=== PATIENT | female | born 1940 | race Caucasian/White ===

== ENCOUNTER 2020-05-02 14:19 | Inpatient (IN) ==
[2020-05-02] MEDS ORDERED: *HR* OxyCODONE/APAP 5/325 TABLET PO ONE (17:56)
[2020-05-02] MEDS ORDERED: *HR* LORazepam 1 MG TABLET PO ONE (17:56)
[2020-05-02] MEDS ORDERED: *HR* FentaNYL (PF) 100 MCG/2 ML VIAL IVP ONE (18:38)
[2020-05-02] MEDS ORDERED: *HR* FentaNYL (PF) 100 MCG/2 ML VIAL IM ONE (19:07)
[2020-05-02] MEDS ORDERED: *HR* HYDROmorphone (PF) 1 MG/ML SYRINGE IM ONE (19:30)
[2020-05-02] MEDS ORDERED: *HR* HYDROmorphone (PF) 1 MG/ML SYRINGE IVP ONE ×2 (19:31→19:37)
[2020-05-02 22:42] LABS: Basophils % 0.6 %; Eosinophils # 0.2 K/mcL (0.0-0.6); Eosinophils % 3.2 %; Hematocrit 40.4 % (35.3-44.9); Hemoglobin 13.8 g/dL (11.5-15.4); Immature Granulocytes % 0.3 % (0-4); Lymphocytes # 1.3 K/mcL (0.6-4.6); Lymphocytes % 18.2 %; Mean Corpuscular HGB Conc 34.2 g/dL (31.6-35.5); Mean Corpuscular Hemoglobin 32.9 pg (28.0-33.3); Mean Corpuscular Volume 96.4 fL (83.0-100.0); Mean Platelet Volume 8.5 fL (9.4-12.4); Monocytes % 13.8 %; Neutrophils # 4.7 K/mcL (1.6-8.9); Platelet Count 318 K/mcL (140-400); Red Blood Count 4.19 M/mcL (3.82-4.97); Red Cell Distribution Width 12.6 % (11.5-14.5); Segmented Neutrophils % 63.9 %; White Blood Count 7.3 K/mcL (4.3-11.1)
[2020-05-02 23:07] LABS: Alanine Aminotransferase 19 Units/L (7-52); Albumin 3.2 g/dL (3.5-5.7); Alkaline Phosphatase 68 Units/L (34-104); Aspartate Amino Transferase 14 Units/L (13-39); BUN/Creatinine Ratio 29 (6-26); Bilirubin,Total 0.4 mg/dL (0.3-1.0); Blood Urea Nitrogen 12 mg/dL (8-23); C-Reactive Protein 12 mg/L (Less than 10); Calcium 8.1 mg/dL (8.6-10.3); Carbon Dioxide 28 mEq/L (23-29); Chloride 95 mEq/L (98-107); Glucose 98 mg/dL (70-105); Osmolality,Calculated 270 (280-300); Potassium 3.3 mEq/L (3.5-5.1); Sodium 130 mEq/L (136-145); eGFR For African Americans > 60 (> 60); eGFR For Non-African Americans > 60 (> 60)
[2020-05-03] MEDS ORDERED: Naloxone 0.4 MG/ML INJ IVP PRN (00:27)
[2020-05-03] MEDS ORDERED: Acetaminophen 325 MG TABLET PO PRN (00:32)
[2020-05-03] MEDS ORDERED: *HR* Promethazine 25 MG/ML VIAL IVP PRN (00:32)
[2020-05-03] MEDS ORDERED: 0.9 % Sodium Chloride 1,000 ML IVC SCH (00:45)
[2020-05-03 00:53] LABS: Albumin/Globulin Ratio 1.1 (1.1-2.2); Globulin 2.9 g/dL (2.4-3.5); Total Protein 6.1 g/dL (6.4-8.9)
[2020-05-03] MEDS: *HR* HYDROmorphone (PF) 1 MG/ML SYRINGE IVP PRN ×5 (01:56→22:48)
[2020-05-03 06:45] LABS: Basophils % 0.4 %; Eosinophils # 0.2 K/mcL (0.0-0.6); Eosinophils % 2.4 %; Hematocrit 40.3 % (35.3-44.9); Hemoglobin 13.6 g/dL (11.5-15.4); Immature Granulocytes % 0.3 % (0-4); Lymphocytes # 1.2 K/mcL (0.6-4.6); Lymphocytes % 15.8 %; Mean Corpuscular HGB Conc 33.7 g/dL (31.6-35.5); Mean Corpuscular Hemoglobin 32.1 pg (28.0-33.3); Mean Platelet Volume 8.7 fL (9.4-12.4); Monocytes # 1.2 K/mcL (0.0-1.3); Monocytes % 15.1 %; Platelet Count 345 K/mcL (140-400); Red Blood Count 4.24 M/mcL (3.82-4.97); Red Cell Distribution Width 12.6 % (11.5-14.5); White Blood Count 7.6 K/mcL (4.3-11.1)
[2020-05-03 06:47] LABS: INR 1.1; Prothrombin Time 12.8 Seconds (9.4-12.1)
[2020-05-03 07:07] LABS: BUN/Creatinine Ratio 21 (6-26); Blood Urea Nitrogen 8 mg/dL (8-23); Calcium 8.2 mg/dL (8.6-10.3); Carbon Dioxide 27 mEq/L (23-29); Chloride 96 mEq/L (98-107); Glucose 115 mg/dL (70-105); Magnesium 1.6 mg/dL (1.6-2.6); Osmolality,Calculated 273 (280-300); Phosphorous 4.2 mg/dL (2.7-4.5); Potassium 3.8 mEq/L (3.5-5.1); Sodium 132 mEq/L (136-145); eGFR For African Americans > 60 (> 60); eGFR For Non-African Americans > 60 (> 60)
[2020-05-03 07:29] LABS: Vitamin B12 1138 pg/mL (250-1100)
[2020-05-03 07:34] LABS: Vitamin D 25 Hydroxy 36 ng/mL (30-80)
[2020-05-03] MEDS ORDERED: Gadolinium Contrast Agent (WT Based) IV PRN (07:48)
[2020-05-03] MEDS ORDERED: Lactulose Oral Soln 20 GM/30 ML UDC PO PRN (12:09)
[2020-05-03] MEDS: *HR* OxyCODONE Immed Rel 5 MG TABLET PO SCH ×2 (13:15→17:37)
[2020-05-03] MEDS: hydroCHLOROthiazide 25 MG TABLET PO SCH (14:10)
[2020-05-03] MEDS: hydrALAZINE 25 MG TABLET PO SCH ×2 (14:14→17:39)
[2020-05-03] MEDS: Metoprolol 100 MG TABLET PO SCH (20:21)
[2020-05-03] MEDS ORDERED: Gabapentin 300 MG CAPSULE PO SCH (21:00)
[2020-05-04] MEDS: hydrALAZINE 25 MG TABLET PO SCH ×5 (00:36→23:52)
[2020-05-04] MEDS: *HR* OxyCODONE Immed Rel 5 MG TABLET PO SCH ×4 (00:38→17:18)
[2020-05-04] MEDS: *HR* HYDROmorphone (PF) 1 MG/ML SYRINGE IVP PRN ×5 (06:04→23:58)
[2020-05-04] MEDS: Aspirin Enteric Coated 81 MG Tablet PO SCH (08:14)
[2020-05-04] MEDS: Metoprolol 100 MG TABLET PO SCH ×2 (08:15→20:50)
[2020-05-04] MEDS: Gabapentin 300 MG CAPSULE PO SCH ×3 (08:15→20:50)
[2020-05-04] MEDS: hydroCHLOROthiazide 25 MG TABLET PO SCH (13:42)
[2020-05-04] MEDS ORDERED: Sennosides/Docusate Sodium TABLET PO PRN (14:37)
[2020-05-04] MEDS: Ipratropium/Albuterol Neb 3 ML IH SCH ×2 (19:43→23:00)
[2020-05-05] MEDS: *HR* OxyCODONE Immed Rel 5 MG TABLET PO SCH ×4 (00:01→16:00)
[2020-05-05] MEDS: Ipratropium/Albuterol Neb 3 ML IH SCH ×6 (04:17→23:55)
[2020-05-05] MEDS ORDERED: ceFAZolin 2,000 MG in 0.9 % Sodium Chloride 100 ML IVPB SCH (06:00)
[2020-05-05] MEDS: hydrALAZINE 25 MG TABLET PO SCH ×3 (06:19→15:59)
[2020-05-05] MEDS: Gabapentin 300 MG CAPSULE PO SCH ×3 (07:31→20:13)
[2020-05-05] MEDS: Metoprolol 100 MG TABLET PO SCH ×2 (09:10→21:30)
[2020-05-05] MEDS: Aspirin Enteric Coated 81 MG Tablet PO SCH (09:10)
[2020-05-05] MEDS: *HR* HYDROmorphone (PF) 1 MG/ML SYRINGE IVP PRN ×3 (09:39→19:31)
[2020-05-05] MEDS: hydroCHLOROthiazide 25 MG TABLET PO SCH (11:31)
[2020-05-05 21:20] LABS: Basophils % 0.4 %; Eosinophils # 0.2 K/mcL (0.0-0.6); Eosinophils % 2.4 %; Hematocrit 42.4 % (35.3-44.9); Hemoglobin 14.5 g/dL (11.5-15.4); Immature Granulocytes % 0.3 % (0-4); Lymphocytes # 1.5 K/mcL (0.6-4.6); Lymphocytes % 15.2 %; Mean Corpuscular HGB Conc 34.2 g/dL (31.6-35.5); Mean Corpuscular Hemoglobin 33.3 pg (28.0-33.3); Mean Corpuscular Volume 97.5 fL (83.0-100.0); Mean Platelet Volume 8.4 fL (9.4-12.4); Monocytes # 1.3 K/mcL (0.0-1.3); Monocytes % 13.6 %; Neutrophils # 6.7 K/mcL (1.6-8.9); Platelet Count 327 K/mcL (140-400); Red Blood Count 4.35 M/mcL (3.82-4.97); Red Cell Distribution Width 12.6 % (11.5-14.5); Segmented Neutrophils % 68.1 %; White Blood Count 9.8 K/mcL (4.3-11.1)
[2020-05-05] MEDS ORDERED: *HR* PHENYLEPHRINE 1,000 MCG/10 ML SYRINGE IVP ONE (21:40)
[2020-05-05] MEDS ORDERED: *HR* Rocuronium Bromide 50 MG/5 ML VIAL ONE (21:40)
[2020-05-05] MEDS ORDERED: Lidocaine -MPF 2% 2 ML VIAL ONE (21:40)
[2020-05-05] MEDS ORDERED: *HR* FentaNYL (PF) 100 MCG/2 ML VIAL ONE (21:40)
[2020-05-05] MEDS ORDERED: *HR* Succinylcholine 200 MG/10 ML VIAL IVP ONE (21:40)
[2020-05-05] MEDS ORDERED: Ondansetron 4 MG/2 ML VIAL ONE (21:41)
[2020-05-05] MEDS ORDERED: *HR* Propofol 200 MG/20 ML VIAL IVP ONE (21:41)
[2020-05-05] MEDS ORDERED: Dexamethasone 4 MG/ML VIAL ONE (21:41)
[2020-05-05 21:53] LABS: BUN/Creatinine Ratio 14 (6-26); Blood Urea Nitrogen 5 mg/dL (8-23); Calcium 8.3 mg/dL (8.6-10.3); Carbon Dioxide 24 mEq/L (23-29); Chloride 91 mEq/L (98-107); Glucose 95 mg/dL (70-105); Osmolality,Calculated 265 (280-300); Potassium 3.8 mEq/L (3.5-5.1); Sodium 129 mEq/L (136-145); eGFR For African Americans > 60 (> 60); eGFR For Non-African Americans > 60 (> 60)
[2020-05-05] MEDS ORDERED: Isovue-300 50ML VIAL ONE (21:58)
[2020-05-05] MEDS ORDERED: Ondansetron 4 MG/2 ML VIAL IVP PRN (21:59)
[2020-05-05] MEDS ORDERED: *HR* HYDROmorphone PF 0.5 MG/0.5 ML SYRINGE IVP PRN (21:59)
[2020-05-05] MEDS ORDERED: Acetaminophen IV 1,000 MG/100 ML INFUS..BTL ONE (22:09)
[2020-05-05] MEDS ORDERED: Clindamycin 600 MG/50 ML 600 MG/50 ML IV.SOLN IVPB ONE (22:16)
[2020-05-05] MEDS ORDERED: EPHEDrine 50 MG/ML VIAL ONE (22:59)
[2020-05-05] MEDS ORDERED: Albumin Human 5% 12.5 GM/250 ML IV.SOLN ONE (23:00)
[2020-05-05] MEDS: *HR* Labetalol 20 MG/4 ML SYRINGE IVP PRN (23:51)
[2020-05-06] MEDS: *HR* Labetalol 20 MG/4 ML SYRINGE IVP PRN (00:21)
[2020-05-06] MEDS ORDERED: Ondansetron 4 MG/2 ML VIAL IVP PRN (01:14)
[2020-05-06] MEDS ORDERED: *HR* OxyCODONE Immed Rel 5 MG TABLET PO PRN ×2 (01:14)
[2020-05-06] MEDS ORDERED: Sennosides/Docusate Sodium TABLET PO PRN (01:14)
[2020-05-06] MEDS ORDERED: ACETAMINOPHEN 1000 MG PO SCH (01:14)
[2020-05-06] MEDS ORDERED: tiZANidine 4 MG TABLET PO PRN (01:14)
[2020-05-06] MEDS ORDERED: Ringers Solution, Lactated 1,000 ML IVC SCH (01:14)
[2020-05-06] MEDS ORDERED: Naloxone 0.4 MG/ML INJ IVP PRN (01:14)
[2020-05-06] MEDS: Sennosides 8.6 MG TABLET PO SCH ×4 (01:43→12:09)
[2020-05-06] MEDS: *HR* OxyCODONE Immed Rel 5 MG TABLET PO SCH ×2 (06:05→12:09)
[2020-05-06] MEDS ORDERED: Clindamycin 600 MG/50 ML 600 MG/50 ML IV.SOLN IVPB SCH ×2 (08:00)
[2020-05-06] MEDS ORDERED: Cholecalciferol (D-3) 1,000 UNIT (25MCG) TABLET PO SCH (09:00)
[2020-05-06] MEDS ORDERED: Gabapentin 300 MG CAPSULE PO SCH (09:00)
[2020-05-06] MEDS ORDERED: Multivit/Ca/Min/Fe/FA 1 TAB TABLET PO SCH (09:00)
[2020-05-06] MEDS ORDERED: Aspirin Enteric Coated 81 MG Tablet PO SCH (09:00)
[2020-05-06 10:46] VITALS: BP 108/57
== END 2020-05-06 15:32 | disposition home health service (06) | DRG 479 ==
LOC: 3BNU 14:19 → EMEROOARM 14:19 → 3BNU 23:04 → 3NENU 05-05 22:16
PROVIDERS: ADMIT Student in an Organized Health Care Education/Training Program; ATTEND Student in an Organized Health Care Education/Training Program